=== PATIENT | female | born 1955 | race Caucasian/White ===

== ENCOUNTER → 2016-12-27 | Outpatient (CLI) | payer OTHER ==
[~2016-12-27] VITALS: Ht 170.2 cm; Wt 74.8 kg
[~2016-12-27] MED LIST: CLAR10CA3 PO; ESTR625TA PO; HYDR12CA PO; LIDOCAINE 2% INJ 100 MG/5 ML SDV (FOR ANES.) As Ordered ONE; NS 500 ML IV ONE; OMEP20CA3 PO; PRAV10TA PO; PROPOFOL 500 MG/50 ML VIAL As Ordered ONE; TRAM50TA2 PO; VITA100037 PO
--- NOTE | 2016-12-27 11:07 | ROOR ---
Patient Name: Jyoti Mead Procedure Date: 12/27/2016 10:52 AM Date of : 1955 Age: 61 Room: [facility] Gender: Female Note Status: Finalized Procedure: Upper GI endoscopy Indications: Surveillance for malignancy due to personal history of Jay's esophagus Providers: Osmin MCNULTY MD Referring MD: LASHELL ARENAS MD Requesting Provider: Medicines: Monitored Anesthesia Care Complications: No immediate complications. Procedure: Pre-Anesthesia Assessment: - The heart rate, respiratory rate, oxygen saturations, blood pressure, adequacy of pulmonary ventilation, and response to care were monitored throughout the procedure. The Endoscope was introduced through the mouth, and advanced to the second part of duodenum. The upper GI endoscopy was accomplished without difficulty. The patient tolerated the procedure well. Findings: The Z-line was variable and was found at the gastroesophageal junction. This was biopsied with a cold forceps for histology. The exam was otherwise without abnormality. Impression: - Z-line variable, at the gastroesophageal junction. Biopsied. - The examination was otherwise normal. Recommendation: - Await pathology results. - Continue present medications. - Follow an antireflux regimen. - Repeat upper endoscopy in 3 years for surveillance. Osmin Mcnulty MD Osmin MCNULTY MD 12/27/2016 11:07:32 AM This report has been signed electronically. Number of Addenda: 0 Note Initiated On: 12/27/2016 10:52 AM Estimated Blood Loss: Estimated blood loss: none.
--- NOTE | 2016-12-27 11:20 | ROOR ---
Patient Name: Jyoti Mead Procedure Date: 12/27/2016 10:53 AM Date of : 1955 Age: 61 Room: [facility] Gender: Female Note Status: Finalized Procedure: Colonoscopy Indications: Screening for colorectal malignant neoplasm Providers: Osmin GONZALEZ MD Referring MD: LASHELL ARENAS MD Requesting Provider: Medicines: Monitored Anesthesia Care Complications: No immediate complications. Procedure: Pre-Anesthesia Assessment: - The heart rate, respiratory rate, oxygen saturations, blood pressure, adequacy of pulmonary ventilation, and response to care were monitored throughout the procedure. The Colonoscope was introduced through the anus and advanced to the cecum, identified by appendiceal orifice and ileocecal valve. The colonoscopy was performed without difficulty. The patient tolerated the procedure well. The quality of the bowel preparation was good. Findings: The perianal exam findings include skin tags. (Exam: Complete, Prep: Good or Excellent.) A 5 mm polyp was found in the ascending colon. The polyp was sessile. The polyp was removed with a cold snare. Resection and retrieval were complete. Multiple medium-mouthed diverticula were found in the sigmoid colon. Small Internal Hemorrhoids. Impression: - Perianal skin tags found on perianal exam. - One 5 mm polyp in the ascending colon, removed with a cold snare. Resected and retrieved. - Mild Diverticulosis in the sigmoid colon. - Small Internal Hemorrhoids. Recommendation: - Repeat colonoscopy in 3 years for surveillance. Osmin Gonzalez MD Osmin GONZALEZ MD 12/27/2016 11:19:53 AM This report has been signed electronically. Number of Addenda: 0 Note Initiated On: 12/27/2016 10:53 AM Estimated Blood Loss: Estimated blood loss: none.
[2016-12-27 11:45] VITALS: BP 123/71
== END | disposition home or self-care (01) ==
LOC: M OPP 10:01
PROVIDERS: ATTEND Internal Medicine Gastroenterology
DX: Z12.11 Encounter for screening for malignant neoplasm of colon (principal); D12.2 Benign neoplasm of ascending colon; K57.30 Diverticulosis of large intestine without perforation or abscess without bleeding; K64.8 Other hemorrhoids; K64.4 Residual hemorrhoidal skin tags; K22.70 Barrett's esophagus without dysplasia; K22.8 Other specified diseases of esophagus; R12 Heartburn; E78.5 Hyperlipidemia, unspecified; Z78.0 Asymptomatic menopausal state; F17.210 Nicotine dependence, cigarettes, uncomplicated; Z79.899 Other long term (current) drug therapy; Z80.41 Family history of malignant neoplasm of ovary

== ENCOUNTER → 2019-03-05 | Outpatient (CLI) | payer OTHER ==
[~2019-03-05] MED LIST changes: -LIDOCAINE 2% INJ 100 MG/5 ML SDV (FOR ANES.) As Ordered ONE; -NS 500 ML IV ONE; -OMEP20CA3 PO; +OMEP20CA4 PO; -PRAV10TA PO; +PRAV10TA4 PO; -PROPOFOL 500 MG/50 ML VIAL As Ordered ONE; -VITA100037 PO; +VITA100067 PO
--- NOTE | 2019-03-06 07:21 | REP ---
Clinical: Stage III chronic medical renal disease. Technique: Real time mann scale and color ultrasound examination using curved array transducer. Findings: Right kidney is normal in reniform shape with cortical thinning and increased central sinus fat measuring 10.2 x 4.4 x 4.7 cm. No hydronephrosis, nephrolithiasis, cystic or renal mass lesion. Left kidney is normal in reniform shape with cortical thinning and increased central sinus fat measuring 10.4 x 4.6 x 5.1 cm and includes 1 cm upper pole simple cyst. No hydronephrosis, nephrolithiasis, or renal mass lesion. The bladder appears normal and without wall thickening or mass lesion. Bladder currently measures 7.8 x 6.8 x 4.8 cm (134 ml). Impression: Evidence for chronic medical renal disease. 1 cm upper pole left renal cyst. Electronically Signed by Marin Parra MD 03/06/2019 07:13 A
== END ==
LOC: M RAD 15:28
PROVIDERS: ATTEND Internal Medicine Nephrology
DX: N18.3 Chronic kidney disease, stage 3 (moderate) (principal); N28.1 Cyst of kidney, acquired

== ENCOUNTER → 2024-02-12 | Outpatient (CLI) | payer MEDICARE, OTHER ==
[~2024-02-12] MED LIST changes: +OMEP1CAP73 PO; -OMEP20CA4 PO
[2024-02-12 13:38] LABS: HEMATOCRIT 41.9 % (36.0-47.0); HEMOGLOBIN 13.5 g/dl (12.0-15.5); MEAN CORPUSCULAR HEMOGLOBIN 32.7 pg (27.0-33.0); MEAN CORPUSCULAR HGB CONC 32.2 g/dl (32.0-36.5); MEAN CORPUSCULAR VOLUME 101.5 fl (80.0-96.0); PLATELET COUNT, AUTOMATED 339 10^3/uL (150-450); RED BLOOD COUNT 4.13 10^6/uL (4.00-5.40); WHITE BLOOD COUNT 6.6 10^3/uL (4.0-10.0)
[2024-02-12 14:11] LABS: ALBUMIN 3.5 G/DL (3.2-5.2); BILIRUBIN,TOTAL 0.3 MG/DL (0.3-1.2); CALCIUM LEVEL 9.8 MG/DL (8.3-10.6); CHOLESTEROL RISK RATIO 4.35 (<5); CREATININE FOR GFR 1.43 MG/DL (0.55-1.30); GLOMERULAR FILTRATION RATE 38.8 (>45); HDL CHOLESTEROL 50.7 MG/DL (>40); LDL CHOLESTEROL 119.3 MG/DL (<100); NON-HDL-C 170.3 MG/DL; POTASSIUM SERUM 5.3 MMOL/L (3.5-5.1); TOTAL PROTEIN 6.8 G/DL (5.7-8.2)
== END ==
LOC: M WUC 10:36
PROVIDERS: ATTEND Internal Medicine
DX: E78.5 Hyperlipidemia, unspecified (principal); K21.9 Gastro-esophageal reflux disease without esophagitis